=== PATIENT | female | born 1975 | race Asian ===

== ENCOUNTER 2018-03-30 14:34 | Outpatient (CLI) | payer OTHER ==
--- NOTE | 2018-04-07 10:47 | MMO ---
BILATERAL SCREENING MAMMOGRAM: HISTORY: Annual screening study. COMPARISON: 04/10/17, 01/05/16, 12/29/14 exams. Films are reviewed with the assistance of computer-aided detection. The breasts are extremely dense. This lowers the sensitivity of the mammogram. There are calcificat ions seen in both breasts which are felt to be stable as compared to the prior study. IMPRESSION: BI-RADS category 2 - benign findings. BIRADS 2: Benign Finding(s) Routine annual screening mammography (for women over age 40) POS: NEVA
== END 2018-03-30 14:35 | disposition home or self-care (01) ==
LOC: SCSMAMMO 14:34
PROVIDERS: ATTEND Nurse Practitioner Women's Health
DX: Z12.31 Encounter for screening mammogram for malignant neoplasm of breast (principal)
CPT/HCPCS: 77067

== ENCOUNTER 2018-05-21 10:53 | Outpatient (CLI) | payer OTHER ==
--- NOTE | 2018-05-21 13:32 | ULT ---
FOCUSED ULTRASOUND OF THE RIGHT BREAST: 05/21/2018 HISTORY: Palpable mass at the 1 o'clock position of the right breast. The patient reports that this mass has decreased significantly in size over the recent past. FINDINGS: Focused ultrasound of the palpable area is performed. This is at the 1 o'clock position of the right breast, approximately 8 cm from the nipple. In this region there is a cyst with a mildly lobulated border and no internal blood flow or shadowing, measuring approximately 7 x 4 mm. IMPRESSION: 1. BI-RADS 2-Benign findings. 2. Simple cyst noted in the area of palpable concern. POS: OFF
== END 2018-05-21 10:54 | disposition home or self-care (01) ==
LOC: BICMAMMO 10:53
PROVIDERS: ATTEND Family Medicine
DX: N63.12 Unspecified lump in the right breast, upper inner quadrant (principal)
CPT/HCPCS: G0279